=== PATIENT | female | born 1995 | race African-American/Black ===

== ENCOUNTER 2019-07-03 19:37 | Emergency (ER) | payer OTHER, SELFPAY ==
[2019-07-03 19:39] VITALS: BP 110/54; PULSE 83; RESP 16; TEMP 36.7; O2SAT 100
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
[2019-07-03] MEDS: KETOROLAC (*BKC) 60 MG/2 ML VIAL IM (20:37)
[2019-07-03 20:42] LABS: Add Urine Microscopic? YES; Appearance Urine Clear (Clear); Bacteria Urine Trace /hpf; Bilirubin Urine 2+ (Negative); Blood Urine Negative (Negative); Color Urine Amber (Yellow); Glucose Urine UA Negative (Negative); Ketones Urine Trace mg/dL (Negative); Leukocyte Esterase Ur 3+ LEU/UL (Negative); Mucus Urine Heavy /lpf; Nitrate Urine Negative (Negative); Protein Urine 1+ mg/dL (Negative); Specific Grav Ur 1.026 (1.001-1.035); Squamous Epithelial Cell Urine Many /hpf (Few); WBC Urine >75 /hpf
[2019-07-03 21:42] VITALS: BP 114/85; PULSE 80; RESP 18; TEMP 36.2; O2SAT 100
== END 2019-07-03 21:43 | disposition home or self-care (01) ==
PROVIDERS: Emergency Provider Emergency Medicine
DX: S29.012A Strain of muscle and tendon of back wall of thorax, initial encounter (principal); X58.XXXA Exposure to other specified factors, initial encounter
CPT/HCPCS: 81001; 81025; 87086; 96372; 99284; A9270; J1885; J3360

== ENCOUNTER 2022-01-17 17:42 | Observation (INO) | payer OTHER, SELFPAY ==
--- NOTE | ~2022-01-17 | XR_ITS ---
EXAMINATION: XR chest 1V portable DATE: 01/17/2022 18:52 INDICATION: Right lower chest pain. Right upper quadrant abdominal pain. TECHNIQUE: A single frontal view of the chest was obtained. COMPARISON: None. FINDINGS: The chest demonstrates clear lungs without pneumonia, pleural effusion, or pneumothorax. Th e heart size is normal. IMPRESSION: 1. No acute cardiopulmonary disease. Reviewed, dictated and finalized at location E.
--- NOTE | ~2022-01-17 | US_ITS ---
EXAMINATION: US OB <= 14 weeks fetus DATE: 01/17/2022 21:27 INDICATION: Abdominal pain during first trimester TECHNIQUE: Real-time pelvic transabdominal and transvaginal ultrasound was performed. COMPARISON: None. FINDINGS: The uterus measures 9.8 x 6.3 x 6.0 cm. There is an intrauterine gestational sac. A yolk s ac is identified. heart motion is identified measuring 115 beats per minute (bpm) by M-mode Dop pler. The crown rump length measures 7 mm , which correlates with an estimated gestational age of 6 weeks and 4 day(s) (+/-) 4 day(s). The right ovary measures 3.0 x 2.7 x 1.4 cm. The left ovary measures 3.2 x 2.2 x 3.2 cm. There is nor mal vascular flow in the ovaries. There is no free fluid in the pelvis. IMPRESSION: 1. Live intrauterine with an estimated gestational age of 6 weeks and 4 day(s) (+/-) 4 day( s) and an estimated delivery date of 08/19/2022. Reviewed, dictated and finalized at location F. IMPRESSION: 1. Live intrauterine with an estimated gestational age of 6 weeks and 4 day(s) (+/-) 4 day(s) and an estimated delivery date of 08/19/2022.
[2022-01-17 17:54] VITALS: BP 111/65; PULSE 95; RESP 14; TEMP 36.7; O2SAT 100
[2022-01-17 18:20] LABS: Basophils Percent Auto 0.2 % (0.2-1.2); Eosinophils Percent Auto 0.2 % (0-4.4); Hematocrit 42.5 % (37.0-47.0); Hemoglobin 13.8 g/dL (12.0-15.0); Immature Granulocyte Absolute 0.04 K/mm3 (0.00-0.031); Immature Granulocyte Percent A 0.3 % (0-0.5); Immature Platelet Fraction Pct 8.8 % (0.9-11.2); Lymphocytes Absolute Auto 1.58 K/mm3 (0.9-3.2); Lymphocytes Percent Auto 12.2 % (18.3-44.2); Mean Corpuscular HGB Conc 32.5 g/dl (32-36); Mean Corpuscular Hemoglobin 27.8 pg (26-34); Mean Corpuscular Volume 85.7 fl (80-100); Monocytes Absolute Auto 0.7 K/mm3 (0.1-0.6); Monocytes Percent Auto 5.4 % (2.6-8.5); Neutrophils Absolute Auto 10.5 K/mm3 (1.3-6.7); Neutrophils Percent Auto 81.7 % (45.5-73.1); Red Blood Count 4.96 M/mm3 (4.2-5.4); Red Cell Distribution Width 13.3 % (11.5-14.5); White Blood Count 12.9 K/mm3 (4.5-10.0)
[2022-01-17 18:28] LABS: Alanine Aminotransferase 12 U/L (6-35); Albumin Level 5.2 g/dL (3.5-5.1); Alkaline Phosphatase 68 U/L (38-126); Anion Gap 24 mmol/L (8-16); Aspartate Amino Transferase 20 U/L (14-36); Bilirubin,Total 0.9 mg/dL (0.2-1.3); Blood Urea Nitrogen 10 mg/dL (7-17); Calcium 9.4 mg/dL (8.4-10.2); Carbon Dioxide 20 mmol/L (22-30); Chloride 93 mmol/L (98-107); Estimated CRCL calculation 98 ml/min; Estimated Glomerular Filt Rate > 60; Glucose 138 mg/dL (65-110); Lipase 43 U/L (23-300); Potassium 2.9 mmol/L (3.4-5.0); Sodium 137 mmol/L (137-145)
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
[2022-01-17] MEDS: ONDANSETRON INJ 4 MG/2 ML VIAL 8 MG IV PUSH (19:11)
[2022-01-17] MEDS: SODIUM CHLORIDE 0.9% IV 2,000 ML 999 ML IV CONT (19:14)
--- NOTE | 2022-01-17 19:30 | PC.NURSE ---
1899 Assumed pt care from NILSON Washburn
[2022-01-17] MEDS: MORPHINE SULFATE (*CRX) 4 MG/ML INJ IV PUSH (20:32)
[2022-01-17 21:40] LABS: D Dimer 0.29 ug/mL (<0.48)
[2022-01-17] MEDS: POTASSIUM CHLORIDE 20 MEQ TABLET 40 MEQ PO (21:47)
[2022-01-17 22:15] LABS: Appearance Urine Slightly Cloudy (Clear); Bilirubin Urine 2+ (Negative); Blood Urine Negative (Negative); Color Urine Yellow (Yellow); Glucose Urine UA Negative (Negative); Ketones Urine 3+ mg/dL (Negative); Leukocyte Esterase Ur Negative LEU/UL (Negative); Nitrate Urine Negative (Negative); Protein Urine 2+ mg/dL (Negative); Specific Grav Ur 1.025 (1.001-1.035)
[2022-01-17 22:40] LABS: Add Urine Microscopic? YES
[2022-01-17 22:42] LABS: RBC Urine 0-2 /hpf (0-2); WBC Urine 21-30 /hpf
[2022-01-17 22:43] LABS: Mucus Urine Few /lpf; Squamous Epithelial Cell Urine Moderate /hpf (Few)
[2022-01-17 22:44] LABS: Bacteria Urine None seen /hpf
[2022-01-17 22:55] VITALS: BP 112/58; PULSE 74; RESP 16; TEMP 36.8; O2SAT 100
[2022-01-17 23:52] VITALS: BP 112/58; PULSE 73; RESP 16; O2SAT 99
[2022-01-18 00:03] VITALS: BP 108/91; PULSE 77
--- NOTE | 2022-01-18 00:22 | PC.NURSE ---
paged through exchange [phone] Tomas responded to page. orders received. will monitor pt overnight and reevaluate pt in am. will call if questions/concerns.
[2022-01-18] MEDS: ACETAMINOPHEN 500 MG TABLET 1000 MG PO (00:29)
[2022-01-18] MEDS: LACTATED RINGERS 1,000 ML 150 ML IV CONT (00:31)
[2022-01-18 00:42] VITALS: BMI 28.2
--- NOTE | 2022-01-18 00:42 | OBADM ---
This patient, Bond, admitted to the OB room [facility] for observation. Patient/family oriented to hospital policies and general routines including ID bracelet, bed and alarms, visiting hours, pain management, procedures, bathroom and other care routines, personal items, smoking policy, room service/diet, and visiting hours. Patient/Family are encouraged to report perceived risks to care and to ask questions if they do not understand what they are told or what they should do.
--- NOTE | 2022-01-18 00:48 | PC.NURSE ---
pt requesting food and oral fluids. pt instructed to take small sips of fluids and small bits to see if she tolerates it.
[2022-01-18 01:13] VITALS: TEMP 36.8
--- NOTE | 2022-01-18 03:34 | PC.NURSE ---
pt sleeping. no complaints at this time
--- NOTE | 2022-01-18 05:01 | PC.NURSE ---
pt sleeping when entered room. pt awoke, stated that she has slept since admission and no nausea/vomiting since admission. no complaints of abd pain at this time.
[2022-01-18] MEDS: ONDANSETRON HCL ODT 4 MG TABLET PO (07:26)
--- NOTE | 2022-01-19 13:33 | PM.OBTRLD ---
OB - Triage/Final Diagnosis Visit Information Reason for evaluation: other (Hyperemesis in the 1st trimester) Comments/Additional reasons for admission: I have assessed the risk for this patient, Bond, and determined that she would benefit from observation care. Evaluation Laboratory results: Laboratory Tests 01/17/22 01/17/22 01/17/22 18:08 18:08 18:08 WBC 12.9 H RBC 4.96 Hgb 13.8 Hct 42.5 MCV 85.7 MCH 27.8 MCHC 32.5 RDW 13.3 Plt Count TNP MPV TNP Immature Gran % (Auto) 0.3 Neut % (Auto) 81.7 H Lymph % (Auto) 12.2 L [place] % (Auto) 5.4 Eos % (Auto) 0.2 Baso % (Auto) 0.2 Lymph # (Auto) 1.58 [place] # (Auto) 0.7 H Eos # (Auto) 0.0 Baso # (Auto) 0.0 Abs Immat Gran (auto) 0.04 H Absolute Neuts (auto) 10.5 H Absolute Nucleated RBC 0.0 Nucleated RBC % 0.0 % Immature Plt Fraction 8.8 D-Dimer Sodium 137 Potassium 2.9 L Chloride 93 L Carbon Dioxide 20 L Anion Gap 24 H BUN 10 Creatinine 0.70 Estim Creat Clear Calc 98 Estimated GFR > 60 Glucose 138 H Calcium 9.4 Total Bilirubin 0.9 AST 20 ALT 12 Alkaline Phosphatase 68 Total Protein 10.0 H Albumin 5.2 H Lipase 43 Beta HCG, Quant 46838.00 Urine Color Urine Appearance Urine pH Ur Specific [place] Urine Protein Urine Glucose (UA) Urine Ketones Ur Blood (Man) Urine Nitrate Urine Bilirubin Urine Urobilinogen Leukocyte Esterase Rfl Urine RBC Urine WBC Ur Squamous Epith Cells Urine Bacteria Urine Mucus 01/17/22 01/17/22 20:53 22:08 WBC RBC Hgb Hct MCV MCH MCHC RDW Plt Count MPV Immature Gran % (Auto) Neut % (Auto) Lymph % (Auto) [place] % (Auto) Eos % (Auto) Baso % (Auto) Lymph # (Auto) [place] # (Auto) Eos # (Auto) Baso # (Auto) Abs Immat Gran (auto) Absolute Neuts (auto) Absolute Nucleated RBC Nucleated RBC % % Immature Plt Fraction D-Dimer 0.29 Sodium Potassium Chloride Carbon Dioxide Anion Gap BUN Creatinine Estim Creat Clear Calc Estimated GFR Glucose Calcium Total Bilirubin AST ALT Alkaline Phosphatase Total Protein Albumin Lipase Beta HCG, Quant Urine Color Yellow Urine Appearance Slightly cloudy Urine pH 6.0 Ur Specific [place] 1.025 Urine Protein 2+ H Urine Glucose (UA) Negative Urine Ketones 3+ H Ur Blood (Man) Negative Urine Nitrate Negative Urine Bilirubin 2+ H Urine Urobilinogen 1.0 Leukocyte Esterase Rfl Negative Urine RBC 0-2 Urine WBC 21-30 H Ur Squamous Epith Cells Moderate H Urine Bacteria None seen Urine Mucus Few H
== END 2022-01-18 08:35 | disposition home or self-care (01) ==
LOC: ANHED 22:50 → ANHOBPP 23:06
PROVIDERS: Admitting Provider Obstetrics & Gynecology; Emergency Provider Emergency Medicine; Visit Provider Obstetrics & Gynecology
DX: O21.0 Mild hyperemesis gravidarum (principal); O26.891 Other specified pregnancy related conditions, first trimester; R10.9 Unspecified abdominal pain; Z3A.01 Less than 8 weeks gestation of pregnancy
CPT/HCPCS: 36415; 51701; 71045; 76801; 80053; 81001; 81025; 83690; 84702; 85025; 85055; 85380; 87086; 87088; 96360; 96361; 96374; 96375; 99285; A9270; G0378; G0379; J2270; J2405; J7030; J7120